=== PATIENT | female | born 1990 | race American Indian/Alaskan Native ===

== ENCOUNTER 2018-12-10 16:46 | Outpatient (CLI) | payer OTHER ==
[2018-12-10 16:58] VITALS: BP 124/81
--- NOTE | 2018-12-10 18:45 | Ultrasound Report ---
FINAL REPORT EXAM: US OB BPP WO NON-STRESS HISTORY: well being TECHNIQUE: Ultrasound biophysical profile PRIORS: None. FINDINGS: Single live intrauterine gestation is present with heart rate of 131 beats per minute Biophysical profile was performed respiratory motion 2 Body movement 2 tone 2 Amniotic fluid volume 2 Total 05/30 Impression Normal biophysical profile 05/30
--- NOTE | 2018-12-10 18:46 | Ultrasound Report ---
FINAL REPORT EXAM: US OB LIMITED HISTORY: well being TECHNIQUE: Ultrasound obstetrical limited PRIORS: None. FINDINGS: Single live intrauterine gestation present in cephalic presentation cardiac activity is present with heart rate of 131 beats per minute Amniotic fluid index is within normal limits 8.3 centimeters. There is some heterogeneity seen within myometrium which may reflect a uterine fibroid 11.7 x 9.0 x 1 0.3 centimeters IMPRESSION: Single live intrauterine gestation in cephalic presentation
== END 2018-12-10 18:40 | disposition home or self-care (01) ==
LOC: TRG 16:46
PROVIDERS: ATTEND Obstetrics & Gynecology
DX: O47.1 False labor at or after 37 completed weeks of gestation (principal); Z3A.38 38 weeks gestation of pregnancy
CPT/HCPCS: 59025; 76815; 76819